=== PATIENT | female | born 1990 | race Caucasian/White ===

== ENCOUNTER 2016-09-21 21:33 | Emergency (ER) | payer OTHER ==
[~2016-09-21] VITALS: Ht 160 cm; Wt 61.4 kg
[~2016-09-21 21:33] MED LIST: Docusate Sodium PO; HYDR-3797 PO; IBUP800T28 PO; LIDO5CRE17 TOPICAL; OXYC1TAB24 PO
[2016-09-21 21:36] VITALS: BP 118/72; PULSE 96; RESP 16; O2SAT 99
== END 2016-09-21 22:24 | disposition left against medical advice (07) ==
LOC: SED 21:33
DX: M25.572 Pain in left ankle and joints of left foot (principal); Z53.21 Procedure and treatment not carried out due to patient leaving prior to being seen by health care provider

== ENCOUNTER 2017-01-26 20:46 | Emergency (ER) | payer OTHER ==
[~2017-01-26] VITALS: Ht 160 cm; Wt 63.6 kg
[2017-01-26 20:51] VITALS: BP 112/72; PULSE 71; RESP 16; O2SAT 100
--- NOTE | 2017-01-26 22:01 | ED.REPORT ---
HPI-Headache Date of Service Jan 26, 2017 ED Provider: Sylvain Rodriguez MD Pt is a 26 year old female with a history of asthma who presents to the ED complaining of a constant temporal headache onset 2 weeks ago. She c/o associated nausea and fatigue. Per pt, she becomes lightheaded with fast movement. Her headache radiates retro orbitally intermittently. She denies current fever, rash, and extremity swelling. Pt reports that her headache is exacerbated with smoking, caffeine, and light. She states she has taken OTC medicine with minimal relief. Per pt, she has had cold symptoms for the past few days, but the headache was already present prior to the symptoms. Pt denies being exposed to anyone ill recently. The pt describes her headache as "dull, aching, throbbing, pressure, and shooting pain." Nursing Notes Stated Complaint: HEADACHE 2 WEEKS Chief Complaint: Headache Nursing Notes Reviewed: Yes ([employer], [employer] not reconciled) Allergies: Coded Allergies: No Known Allergies (Unverified , 01/26/17) Scheduled ([Docusate Sodium]) 100 MG CAPSULE 100 MG PO BID Lidocaine Cream (Lidocaine Cream) 5 Gm Cream..g. 1 APPLIC TOPICAL BID Scheduled PRN Hydroxyzine Pamoate (HydrOXYzine Pamoate) 25 Mg Capsule 25 MG PO Q6 PRN PRN For Itching Ibuprofen (Ibuprofen) 800 Mg Tablet 800 MG PO q8 PRN PRN For Pain Prochlorperazine Maleate (Prochlorperazine) 10 Mg Tablet 10 MG PO Q6H PRN PRN NO or Nausea oxyCODONE-Acetaminophen 5-325 mg (oxyCODONE-Acetaminophen 5-325 mg) 1 Tab Tablet 1-2 TAB PO Q4H PRN PRN For Pain General Time Seen by MD: 22:00 Chief Complaint Headache Hx Obtained From: Patient Arrived By: Walk-in Sudden in Onset?: No Onset Occurred: More than a week ago... (2 weeks) Symptom Duration: Since onset Location: : Retro orbital: Temporal left: Temporal right Quality: Aching, Dull, Pressure, Stabbing, Throbbing Severity: Current: Moderate Severity: Maximum: Moderate Recent Healthcare: No recent doctor visit, No recent hospitalization Similar Sx Previous: No Past Medical History Past Medical History Reports: Asthma Past Surgical History None reported Family History noncontributory Smoking History Current Every Day Smoker Social History Alcohol Use: Denies alcohol use Other Social History: Good social support, Lives with children, Local resident Ambulatory Status Independent Review of Systems Constitutional: Reports: Fatigue, Denies: Fever (4 days ago) GI: Reports: Nausea Musculoskeletal: Denies: Extremity swelling Skin: Denies Rash Neurologic: Reports: Headache, Lightheaded (with fast movement) Complete sys rev & neg: except as marked. Physical Exam Initial Vital Signs Vital Signs (First) Date Time Temp Pulse Resp B/P Pulse Ox O2 Delivery O2 Flow Rate FiO2 01/26/17 20:51 37.2 71 16 112/72 100 Room Air Initial VS: Reviewed, Vital signs normal Respiratory: Breath sounds normal Cardiovascular: Regular rate & rhythm, Heart sounds normal, Intact distal pulses Abdomen / GI: Soft, Non-tender Extremities: Vascular intact, Neuro intact Skin: Warm, Dry, No cyanosis Psychiatric: Mood/affect normal, Behavior normal General/Constitutional: Awake, Alert Head / Eyes: Atraumatic, Normocephalic Neck: Atraumatic, Full range of motion Neurologic: Oriented X3, Speech NL, No motor deficits, No sensory deficits Interpretation & Diagnostics Lab Results Interpretation Result Diagram: 01/26/17 2246 01/26/17 2246 Test 01/26/17 22:46 01/26/17 22:47 01/26/17 23:02 White Blood Count 8.8th/mm3 (3.8-10.1) Red Blood Count 4.36mil/mm3 (3.90-5.20) Hemoglobin 13.0g/dL (12.0-15.6) Hematocrit 39.7% (35.0-46.0) Mean Corpuscular Volume 91.1fL (81-100) Mean Corpuscular Hemoglobin 29.8pg (27.0-35.0) Mean Corpuscular Hemoglobin Concent 32.7% (32.0-37.0) Red Cell Distribution Width 12.2% (12.3-15.4) Platelet Count 235bil/L (150-400) Neutrophils (%) (Auto) 48.5% (40-74) Lymphocytes (%) (Auto) 42.4% (14-46) Monocytes (%) (Auto) 6.8% (4-12) Eosinophils (%) (Auto) 1.6% (0-5) Basophils (%) (Auto) 0.6% (0-3) Prothrombin Time 9.3sec (8.1-12.5) Prothromb Time International Ratio 0.87ratio Sodium Level 142mEq/L (134-144) Potassium Level 4.0mEq/L (3.5-5.2) Chloride Level 105mEq/L (97-108) Carbon Dioxide Level 24mmol/L (18-29) Blood Urea Nitrogen 17mg/dL (6-20) Creatinine 0.53mg/dL (0.57-1.00) Estimat Glomerular Filtration Rate 201mL/min (>59) Glucose Level 77mg/dL (60-99) Calcium Level 9.3mg/dL (8.5-10.1) Total Bilirubin 0.2mg/dL (0.0-1.2) Aspartate Amino Transf (AST/SGOT) 14U/L (0-50) Alanine Aminotransferase (ALT/SGPT) 16U/L (0-32) Alkaline Phosphatase 55U/L (25-150) Total Protein 6.9g/dL (6.4-8.4) Albumin 4.2g/dL (3.4-5.0) Hold Saucedo Top Tube Received (Received) Hold Urine Received (Received) Lab Results Interpretation: CBC normal CMP normal negative CT Head Interpretation CONCLUSION: No actue intracranial abnormality. INflammatory paranasal sinus mucosal disease. Transmitted to the ED at 23:15 by Zuly Weeks M.D Study: Head CT no contrast Interpretation / Wet Read by: Interpret - Radiologist Re-Eval/Medical Decision Med Decision/Clinical Course This is a 26-year-old female who reports intermittent history of moderate headaches, reports an atypical and more severe headache of 2 weeks' duration. No history of trauma, she did report that a week after developing the headache she developed a mild, he your eye viral syndrome, less resolved. She has no neck stiffness, no rash, but reports nausea, photophobia, persistent bitemporal headache. On exam she is afebrile, nontoxic and clinically appears well. She has a normal neurologic exam. She has no clinical meningismus. Given the duration of symptoms and atypical features a noncontrast head CT is reasonable, and was obtained and was negative. Blood work was normal. Given the absence of any clinical findings of meningismus I am not finding evidence of dictation that an LP would be warranted. Patient's a dose of promethazine and Benadryl with some improvement, and then with supplemental Toradol the headache resolved. Again I am not finding evidence of meningismus or subarachnoid Guevara lumbar puncture, the patient's reassured and discharged in good condition with routine return precautions. Source of Hx: Old records Re-Evaluation/Progress #1: Time of Eval: 23:19 Re-Evaluation/Progress Note: Pt rechecked. Informed pt of CT results. All questions addressed. Re-Evaluation/Progress #2: Time of Eval: 00:11 Re-Evaluation/Progress Note: Pt rechecked. Informed pt of plan for discharge. Pt understands and agrees with plan for discharge. F/U instructions and RTER warnings given. All questions addressed. Differential Diagnosis: Positive: Headache, Negative: [employer] tumor, Carbon monoxide toxicity, Carotid artery dissection, Cerebrovascular accident, Closed head injury, Dental infection, Encephalitis, Fever-induced, Headache, hypertensive, Headache, post LP, Headache, post- traumatic, Hemorrhage, epidural, Hemorrhage, intracerebral, Hemorrhage, subarachnoid, Hemorrhage, subdural, Intracranial abscess, Meningitis, Temporal arteritis Counseled Regarding: Diagnosis, Lab results, Need for follow-up, When/why to return to ED Discharge & Departure Impression: Primary Impression: Headache Headache type: unspecified Headache chronicity pattern: unspecified pattern Intractability: not intractable Qualified Code: R51 - Headache Disposition: Home Discharge Condition All VS Reviewed: Yes Condition: Stable Additional Instructions: 1. A dangerous cause of the headache was not identified. Your CT scan was normal. 2. Continue ibuprofen 400 mg up to 3 times a day if needed. (It is still safe to take, the reason for the warning on the bottle to have you examined) 3. You can take prochlorperazine 10 mg up to every 6 hours if needed. Note: This medicine does cause some drowsiness. 4. Follow up with Dr. Anne as needed. 5. Return if new or worsening symptoms Referrals: Isi Anne MD (PCP) Scribe Attestation Portions of this note were transcribed by Makayla Pagan. I, Dr. Rodriguez personally performed the history, physical exam and medical decision-making; I reviewed and confirmed the accuracy of the information in the transcribed note. Signed by: Josue Munroe, 01/26/17. copies to: Isi Anne MD, Matthew F MD Jan 26, 2017 22:01 Makayla Gomez Jan 26, 2017 22:11
[2017-01-26] MEDS ORDERED: Promethazine Inj 25 MG in Dextrose 5%-Pha MIX 50 ML IV ONE (22:10)
[2017-01-26 22:59] LABS: BASOPHILS % (AUTO) 0.6 % (0-3); EOSINOPHILS % (AUTO) 1.6 % (0-5); MONOCYTES % (AUTO) 6.8 % (4-12); Mean Corpuscular Hemoglobin 29.8 pg (27.0-35.0); Mean Corpuscular Volume 91.1 fL (81-100); NEUTROPHILS % (AUTO) 48.5 % (40-74); Platelet Count 235 bil/L (150-400)
[2017-01-26 23:12] LABS: INR 0.87 ratio
[2017-01-27] MEDS ORDERED: PROC10TA PO (00:14)
[2017-01-27 00:35] VITALS: BP 116/70; PULSE 70; RESP 16; O2SAT 100
--- NOTE | 2017-01-27 08:21 | DRSVH ---
PROCEDURE: CT BRAIN WITHOUT CONTRAST ([id number]) INDICATIONS: garcia TECHNIQUE: Noncontrast 4.5 mm thick angled axial sections acquired from the foramen magnum to the vertex, with c oronal reformats. COMPARISON: [facility], CT, BRAIN W/O CONTRAST, 03/03/2011, 1:56. FINDINGS: Image quality: Excellent. CSF spaces: Basal cisterns are patent. No extra-axial fluid collections. Ventricles are normal in size and shape. Brain: No midline shift. No intracranial masses or hemorrhage. Poole-white matter interface is norm al. Skull and face: Calvarium and visualized facial bones are intact, without suspicious lesions. Sinuses: Visualized sinuses and mastoids suggest moderate mucosal thickening of the ethmoid sinuses. IMPRESSION: No abnormality is found intracranially. There is moderate mucosal thickening of the ethmo id sinuses. Dictated by: Truong Nick M.D. on 01/27/2017 at 8:17 Approved by: Truong Nick M.D. on 01/27/2017 at 8:18
== END 2017-01-27 00:36 | disposition home or self-care (01) ==
LOC: SED 20:46
DX: R51 Headache (principal); J45.909 Unspecified asthma, uncomplicated; F17.200 Nicotine dependence, unspecified, uncomplicated
CPT/HCPCS: 36415; 70450; 80053; 81025; 85025; 85610; 96374; 96375; 99285; J1200; J1885; J2550